=== PATIENT | male | born 1955 | race Caucasian/White ===

== ENCOUNTER 2024-12-14 10:42 | Outpatient (CLI) | payer MEDICARE, SELFPAY ==
--- NOTE | ~2024-12-14 | US_ITS ---
EXAMINATION: US retroperitoneal comp DATE: 12/14/2024 11:53 INDICATION: Retention of urine TECHNIQUE: Multiple ultrasound grayscale images of the kidneys were obtained. COMPARISON: None. FINDINGS: The right kidney measures 12.1 x 5.6 x 5.6 cm. The left kidney measures 12.4 x 6.9 x 5.1 cm. The kidn eys demonstrate normal echogenicity. There is no hydronephrosis in either kidney. No stones identifi ed. There is a Tian catheter in the bladder. The fluid cavity is completely some rounded by hypoecho ic material which could represent either a markedly thickened bladder wall or intraluminal debris suc h as clot.. IMPRESSION: 1. Normal kidneys without hydronephrosis. 2. Severe bladder wall thickening versus clot or other echogenic debris filling the gallbladder lumen . Correlate with urinalysis and could consider repeat imaging following clamping of the Tian cathete r. Reviewed, dictated and finalized at location [facility]. [facility] [employer] IMPRESSION: 1. Normal kidneys without hydronephrosis. 2. Severe bladder wall thickening versus clot or other echogenic debris filling the gallbladder lumen. Correlate with urinalysis and could consider repeat nish ging following clamping of the Tian catheter.
== END 2024-12-14 10:43 | disposition home or self-care (01) ==
LOC: MICIMG 10:42
PROVIDERS: PCP Family Medicine; Visit Provider Urology
DX: R93.89 Abnormal findings on diagnostic imaging of other specified body structures (principal); R33.8 Other retention of urine
CPT/HCPCS: 76770

== ENCOUNTER 2025-03-16 12:27 | Outpatient (CLI) | payer MEDICARE, SELFPAY ==
--- OUTSIDE RECORDS SUMMARY | 2025-03-16 12:31 | XMS_ITS | Clinical Summary ---
Author Organization [facility] Address [address] [place] [id number] Care Team Providers Care Entry Level Recruiter Name Role Phone Unavailable Primary Care Provider Unavailabl e Social History Tobacco Use Types Packs/Day Years Used Date Smoking Tobacco: Never Assessed Sex and Gender Information Value Date Recorded Sex Assigned at Not on file Legal Sex Male 7:01 PM CDT Gender Identity Not on file Sexual Orientation Not on file Plan of Treatment Health Maintenance Due Date Last Done Comments Colorectal Cancer Screening Colonoscopy (10 Years) 1955 Hepatitis C 02/15/1974 DTaP, Tdap and Td Vaccines ( 1 - Tdap) 02/15/1975 Pneumococcal Vaccine: 50+ Ye ars (1 of 1 - PCV) 02/15/2006 Zoster Vaccines (1 of 2) 02/15/2006 COVID-19 Vaccine ( - 2023-2 5 season) 2024 RSV Immunization or 60+ Years (1 - 1-dose 75+ series) 02/15/2031 Meningococcal B Vaccine Aged Out No l onger eligible based on patient's age to complete this topic Meningococcal Vaccine Aged Out No mckinley ean eligible based on patient's age to complete this topic RSV Immunizations Under 20 Months Aged Out No longer eligible based on patient's age to complete this topic
== END 2025-03-16 12:28 | disposition home or self-care (01) ==
LOC: ANHAUDASC 12:29
PROVIDERS: PCP Family Medicine; Visit Provider Otolaryngology
DX: H90.3 Sensorineural hearing loss, bilateral (principal); H93.11 Tinnitus, right ear; R42 Dizziness and giddiness; H93.8X1 Other specified disorders of right ear
CPT/HCPCS: 92557; 92567

== ENCOUNTER 2025-04-13 08:34 | Outpatient (CLI) | payer MEDICARE, SELFPAY | END 2025-04-13 08:35 | disposition home or self-care (01) | PROVIDERS: PCP Family Medicine; Visit Provider Otolaryngology | DX: H90.41 Sensorineural hearing loss, unilateral, right ear, with unrestricted hearing on the contralateral side (principal) | CPT/HCPCS: 92557; 92567 ==